=== PATIENT | female | born 2000 | race American Indian/Alaskan Native ===

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

== ENCOUNTER 2019-04-05 15:10 | Emergency (ER) | payer SELFPAY ==
--- NOTE | 2019-04-05 19:00 | Event Note ---
ED Screening Note Date of service: 04/05/19 Time: 18:57 ED Screening Note: Pt reports that while standing to talk to friend she felt a sudden pop to right forehead area after which she developed GUERRERO and dizziness. This was at 1330 today. mild right eye blurriness. Denies any nausea, vomiting, fever, no speech changes, and no focal weakness. This initial assessment/diagnostic orders/clinical plan/treatment(s) is/are subject to change based on patients health status, clinical progression and re- assessment by fellow clinical providers in the ED. Further treatment and workup at subsequent clinical providers discretion. Patient/guardian urged not to elope from the ED as their condition may be serious if not clinically assessed and managed. Initial orders include: CT head.
[2019-04-05] MEDS ORDERED: ACETAMINOPHEN 500 MG TAB PO ONE (19:01)
[2019-04-05] MEDS ORDERED: diphenhydrAMINE 25 MG CAP PO ONE (20:04)
[2019-04-05] MEDS ORDERED: METOCLOPRAMIDE 10 MG TAB PO ONE (20:04)
[2019-04-05] MEDS ORDERED: predniSONE 20 MG TAB PO ONE (20:04)
--- NOTE | 2019-04-05 20:05 | Cat Scan Report ---
CT head without contrast INDICATION : felt pop in head/ now with steele and dizziness. TECHNIQUE: Axial imaging performed from the skull apex through the skull base without the use of con trast. All CT scans at this location are performed using CT dose reduction for ALARA by means of aut omated exposure control. COMPARISON: CT head from 03/10/2018 FINDINGS: Parenchyma: No acute intracranial hemorrhage or parenchymal abnormality. Ventricles: Ventricles are normal in size and appear symmetric. Soft tissues: Soft tissues including the orbits appear normal. Bones: No acute osseous abnormality. Sinuses: Sinuses and mastoid air cells are clear. IMPRESSION: No acute abnormality. Signer Name: Milind Garay MD Signed: 04/05/2019 8:01 PM Workstation Name: [id number]
--- NOTE | 2019-04-05 20:39 | Emergency Department Report ---
ED Headache HPI - General Chief Complaint: Headache Stated Complaint: HEADACHE Time Seen by Provider: 04/05/19 18:56 - History of Present Illness Initial Comments: Mrs. Montez is a 18-year-old -[place]amese female who presents for 4/10 headache frontal times today. Patient states sudden onset with mild photophobia, no nausea vomiting ,no dizziness, no lightheadedness, no nausea vomiting, no fever, no chills ,no back or neck pain. Patient denies sinus infection, no sinus pain or pressure. Symptoms are exacerbated by movement and position. Symptoms are relieved by rest. Patient states headache is improving but at this time , She is ambulatory with steady gait to baseline per patient, she is tolerating by mouth intake without symptoms Timing/Duration: 24 hours Quality: moderate Head Injury Location: frontal Recent Head Trauma: occasional headaches Modifying Factors: improves with: movement Associated Symptoms: denies: facial pain, fever/chills, loss of consciousness, nausea/vomiting, rash, sinus infection, stiff neck, weakness Allergies/Adverse Reactions: Allergies No Known Allergies Allergy (Verified 08/03/18 12:23) Home Medications: Ambulatory Orders Fluticasone Propionate [Flonase] 2 spray NS QDAY #1 bottle 07/06/14 Cetirizine HCl [ZyrTEC 10mg cap] 10 mg PO QAM 14 Days #14 capsule 06/24/17 ALBUTEROL NEB's [Proventil 0.083% NEBS] 2.5 mg IH TID PRN #25 vial 09/25/17 Doxycycline Hyclate [Vibramycin] 100 mg PO BID 7 Days #14 capsule 09/25/17 Montelukast [Singulair] 10 mg PO QHS 7 Days tablet 09/25/17 predniSONE [Deltasone] 40 mg PO QDAY #8 tab 09/25/17 Albuterol Sulfate [Ventolin Hfa] 1 puff IH Q4H PRN #1 hfa.aer.ad 11/03/17 Ibuprofen [Motrin] 800 mg PO Q8HR PRN #20 tablet 11/03/17 predniSONE [Deltasone] 40 mg PO QDAY #10 tab 11/03/17 Ibuprofen [Motrin] 600 mg PO Q8H PRN #12 tablet 01/14/18 Naproxen 500 mg PO BID PRN #30 tablet 01/18/18 Ibuprofen [Motrin] 600 mg PO Q8H PRN #20 tablet 04/28/18 Ketorolac [Toradol] 10 mg PO Q6H PRN #14 tablet 07/09/18 Cyclobenzaprine [Flexeril 10 MG TAB] 10 mg PO BID PRN #20 tablet 08/03/18 Ibuprofen [Motrin 800 MG tab] 800 mg PO Q8HR PRN #12 tablet 08/03/18 Acetaminophen [Acetaminophen TAB] 1,000 mg PO Q6HR PRN #30 tablet 04/05/19 Metoclopramide [Reglan] 10 mg PO TID PRN #30 tab 04/05/19 diphenhydrAMINE [Benadryl CAP] 25 mg PO Q8HR PRN #30 capsule 04/05/19 ED Review of Systems ROS: Stated complaint: HEADACHE Other details as noted in HPI Constitutional: denies: chills, fever Eyes: denies: eye pain, eye discharge, vision change ENT: denies: ear pain, throat pain Respiratory: denies: cough, shortness of breath, wheezing Cardiovascular: denies: chest pain, palpitations Endocrine: no symptoms reported Gastrointestinal: denies: abdominal pain, nausea, diarrhea Genitourinary: denies: urgency, dysuria, discharge Musculoskeletal: denies: back pain, joint swelling, arthralgia Skin: denies: rash, lesions Neurological: headache. denies: weakness, numbness, paresthesias, confusion, abnormal gait, vertigo Psychiatric: denies: anxiety, depression Hematological/Lymphatic: denies: easy bleeding, easy bruising ED Past Medical Hx - Past Medical History Previous Medical History?: Yes Hx Hypertension: No Hx CVA: No Hx Heart Attack/AMI: No Hx Congestive Heart Failure: No Hx Diabetes: No Hx Deep Vein Thrombosis: No Hx Pulmonary Embolism: No Hx GERD: No Hx Liver Disease: No Hx Renal Disease: No Hx Sickle Cell Disease: No Hx Arthritis: No Hx Headaches / Migraines: No Hx Seizures: No Hx Kidney Stones: No Hx Psychiatric Treatment: No Hx Asthma: Yes Hx COPD: No Hx Tuberculosis: No Hx Dementia: No Hx HIV: No - Surgical History Past Surgical History?: Yes Hx Coronary Stent: No Hx Open Heart Surgery: No Hx Pacemaker: No Hx Internal Defibrillator: No Hx Cholecystectomy: No Hx Appendectomy: No Hx Breast Surgery: No Additional Surgical History: c section - Social History Smoking Status: Never Smoker Substance Use Type: None - Medications Home Medications: Home Medications Medication Instructions Recorded Confirmed Last Taken Type Fluticasone Propionate [Flonase] 2 spray NS QDAY #1 bottle 07/06/14 Unknown Rx Cetirizine HCl [ZyrTEC 10mg cap] 10 mg PO QAM 14 Days #14 capsule 06/24/17 Unknown Rx ALBUTEROL NEB's [Proventil 0.083% 2.5 mg IH TID PRN #25 vial 09/25/17 Unknown Rx NEBS] Doxycycline Hyclate [Vibramycin] 100 mg PO BID 7 Days #14 capsule 09/25/17 Unknown Rx Montelukast [Singulair] 10 mg PO QHS 7 Days tablet 09/25/17 Unknown Rx predniSONE [Deltasone] 40 mg PO QDAY #8 tab 09/25/17 Unknown Rx Albuterol Sulfate [Ventolin Hfa] 1 puff IH Q4H PRN #1 hfa.aer.ad 11/03/17 Unknown Rx Ibuprofen [Motrin] 800 mg PO Q8HR PRN #20 tablet 11/03/17 Unknown Rx predniSONE [Deltasone] 40 mg PO QDAY #10 tab 11/03/17 Unknown Rx Ibuprofen [Motrin] 600 mg PO Q8H PRN #12 tablet 01/14/18 Unknown Rx Naproxen 500 mg PO BID PRN #30 tablet 01/18/18 Unknown Rx Ibuprofen [Motrin] 600 mg PO Q8H PRN #20 tablet 04/28/18 Unknown Rx Ketorolac [Toradol] 10 mg PO Q6H PRN #14 tablet 07/09/18 Unknown Rx Cyclobenzaprine [Flexeril 10 MG 10 mg PO BID PRN #20 tablet 08/03/18 Unknown Rx TAB] Ibuprofen [Motrin 800 MG tab] 800 mg PO Q8HR PRN #12 tablet 08/03/18 Unknown Rx Acetaminophen [Acetaminophen TAB] 1,000 mg PO Q6HR PRN #30 tablet 04/05/19 Unknown Rx Metoclopramide [Reglan] 10 mg PO TID PRN #30 tab 04/05/19 Unknown Rx diphenhydrAMINE [Benadryl CAP] 25 mg PO Q8HR PRN #30 capsule 04/05/19 Unknown Rx ED Physical Exam - General Limitations: No Limitations General appearance: alert, in no apparent distress - Head Head exam: Present: atraumatic, normocephalic - Eye Eye exam: Present: normal appearance, PERRL, EOMI. Absent: conjunctival injection, nystagmus Pupils: Present: normal accommodation - ENT ENT exam: Present: normal orophraynx, mucous membranes moist, TM's normal bilaterally, normal external ear exam - Neck Neck exam: Present: normal inspection, full ROM. Absent: tenderness, meningismus, lymphadenopathy, thyromegaly - Respiratory Respiratory exam: Present: normal lung sounds bilaterally. Absent: respiratory distress, wheezes, stridor, chest wall tenderness - Cardiovascular Cardiovascular Exam: Present: regular rate, normal rhythm, normal heart sounds. Absent: systolic murmur, diastolic murmur, rubs, gallop - GI/Abdominal GI/Abdominal exam: Present: soft, normal bowel sounds. Absent: distended, tenderness, bruit, hernia - Rectal Rectal exam: Present: deferred - Extremities Exam Extremities exam: Present: normal inspection, full ROM, normal capillary refill. Absent: tenderness, calf tenderness - Back Exam Back exam: Present: normal inspection, full ROM. Absent: tenderness, CVA tenderness (R), CVA tenderness (L), muscle spasm, vertebral tenderness - Neurological Exam Neurological exam: Present: alert, oriented X3, CN II-XII intact, normal gait, reflexes normal. Absent: motor sensory deficit - Psychiatric Psychiatric exam: Present: normal affect, normal mood - Skin Skin exam: Present: warm, dry, intact, normal color. Absent: rash, cyanosis ED Course Vital Signs 04/05/19 15:35 Temperature 98.6 F Pulse Rate 80 Respiratory 18 Rate Blood Pressure 136/86 O2 Sat by Pulse 99 Oximetry ED Medical Decision Making - Radiology Data Radiology results: report reviewed, image reviewed Ordering Physician: TRACIE ORTEGA Date of Service: 04/05/19 Procedure(s): CT head/brain wo con Accession Number(s): [id number] cc: TRACIE ORTEGA CT head without contrast INDICATION : felt pop in head/ now with steele and dizziness. TECHNIQUE: Axial imaging performed from the skull apex through the skull base without the use of contrast. All CT scans at this location are performed using CT dose reduction for ALARA by means of automated exposure control. COMPARISON: CT head from 03/10/2018 FINDINGS: Parenchyma: No acute intracranial hemorrhage or parenchymal abnormality. Ventricles: Ventricles are normal in size and appear symmetric. Soft tissues: Soft tissues including the orbits appear normal. Bones: No acute osseous abnormality. Sinuses: Sinuses and mastoid air cells are clear. IMPRESSION: No acute abnormality. Signer Name: Milind Garay MD Signed: 04/05/2019 8:01 PM Workstation Name: [id number] Transcribed By: JACOB Dictated By: Milind Garay MD Electronically Authenticated By: Milind Garay MD Signed Date/Time: 04/05/192000 DD/ 99 TD/TT: - Medical Decision Making CT head was normal., There is no mass or bleed no abnormality. Headache is improved to 2/10. Plan DC'd home with Tylenol Reglan and Benadryl when necessary headache. Patient will follow with PCP in 2-3 days. Referral to neurology states she will follow with PCP first. Patient DC'd to home in stable condition patient is alert oriented 3, patient ambulatory with steady gait patient with no acute distress. DC'd in stable condition at this time. Critical care attestation.: If time is entered above; I have spent that time in minutes in the direct care of this critically ill patient, excluding procedure time. ED Disposition Clinical Impression: Headache Qualifiers: Headache type: unspecified Headache chronicity pattern: acute headache Intractability: not intractable Qualified Code(s): R51 - Headache Disposition: DC-01 TO HOME OR SELFCARE Is pt being admited?: No Does the pt Need Aspirin: No Condition: Stable Instructions: Acute Headache (ED) Prescriptions: Acetaminophen [Acetaminophen TAB] 1,000 mg PO Q6HR PRN #30 tablet PRN Reason: Headache diphenhydrAMINE [Benadryl CAP] 25 mg PO Q8HR PRN #30 capsule PRN Reason: headache Metoclopramide [Reglan] 10 mg PO TID PRN #30 tab PRN Reason: Headache Referrals: [facility] [Outside] - 3-5 Days Forms: Work/School Release Form(ED) Time of Disposition: 20:44
[2019-04-05 20:51] VITALS: BP 143/90
== END 2019-04-05 20:55 | disposition home or self-care (01) ==
LOC: ED 15:10
DX: R51 Headache (principal); Z79.899 Other long term (current) drug therapy
CPT/HCPCS: 70450; 99283; J7512

== ENCOUNTER 2019-06-14 14:04 | Emergency (ER) | payer SELFPAY ==
--- NOTE | 2019-06-14 15:51 | Event Note ---
ED Screening Note ED Screening Note: states she is having abdominal discomfort that began three days ago nausea, vomiting lower back pain no diarrhea no urinary sx PMHx asthma no allergies to meds LNMP: 05/25/19 This initial assessment/diagnostic orders/clinical plan/treatment(s) is/are subject to change based on patients health status, clinical progression and re- assessment by fellow clinical providers in the ED. Further treatment and workup at subsequent clinical providers discretion. Patient/guardian urged not to elope from the ED as their condition may be serious if not clinically assessed and managed. Initial orders include: labs, UA, urine preg
[2019-06-14 16:19] LABS: Basophils % (Auto) 0.5 % (0.0-1.8); Eosinophils # (Auto) 0.1 K/mm3 (0.0-0.4); Eosinophils % (Auto) 1.7 % (0.0-4.3); Hematocrit 39.8 % (30.3-42.9); Hemoglobin 13.2 gm/dl (10.1-14.3); Lymphocytes # (Auto) 3.6 K/mm3 (1.2-5.4); Lymphocytes % (Auto) 45.5 % (13.4-35.0); Mean Corpuscular HGB Conc 33 % (30-34); Mean Corpuscular Volume 86 fl (79-97); Monocytes # (Auto) 0.7 K/mm3 (0.0-0.8); Monocytes % (Auto) 8.6 % (0.0-7.3); Platelet Count 251 K/mm3 (140-440); Red Blood Count 4.65 M/mm3 (3.65-5.03); Red Cell Distribution Width 13.7 % (13.2-15.2)
[2019-06-14 16:41] LABS: Alanine Aminotransferase 20 units/L (7-56); BUN/Creatinine Ratio 17; Blood Urea Nitrogen 12 mg/dL (7-17); Calcium 9.4 mg/dL (8.4-10.2); Hemolysis Index 29
[2019-06-14 17:07] LABS: HCG Qualitative,Urine Negative (Negative)
[2019-06-14 17:10] LABS: Bilirubin,Urine NEG (Negative); Blood,Urine NEG (Negative); Color,Urine Straw (Yellow); Mucus,Urine FEW /HPF; Protein,Urine <15 mg/dL mg/dL (Negative); Urobilinogen,Urine < 2.0 mg/dL (<2.0)
[2019-06-14] MEDS ORDERED: traMADol 50 MG TAB PO ONE (17:22)
--- NOTE | 2019-06-14 17:25 | Emergency Department Report ---
ED Abdominal Pain HPI - General Chief Complaint: Abdominal Pain Stated Complaint: HEADACHE/ABD/BACK PAIN/NAUSEA Time Seen by Provider: 06/14/19 15:49 Source: patient Mode of arrival: Ambulatory Limitations: No Limitations - History of Present Illness Initial Comments: 19 YO COMES TO ER WITH REPORTS OF N/V/D FOR 1 DAY. ASKING FOR WORK NOTE FOR TOMORROW. PMH ASTHMA. LMP 2 W AGO. AMBULATORY AND IN NAD IN ACC. TOOK OTC MEDS AT HOME- DID NOT SEE PCP Complaint: abdominal pain -: days(s) Location: diffuse Consistency: constant Improves With: nothing Worsens With: nothing Associated Symptoms: nausea, vomiting, diarrhea - Related Data Previous Rx's Medication Instructions Recorded Last Taken Type Ibuprofen [Motrin] 800 mg PO Q8HR PRN #30 tablet 06/14/19 Unknown Rx Ondansetron [Zofran Odt] 4 mg PO Q8HR PRN #10 tab.rapdis 06/14/19 Unknown Rx Allergies Allergy/AdvReac Type Severity Reaction Status Date / Time No Known Allergies Allergy Verified 08/03/18 12:23 ED Review of Systems ROS: Stated complaint: HEADACHE/ABD/BACK PAIN/NAUSEA Other details as noted in HPI Comment: All other systems reviewed and negative ED Past Medical Hx - Past Medical History Previous Medical History?: Yes Hx Hypertension: No Hx CVA: No Hx Heart Attack/AMI: No Hx Congestive Heart Failure: No Hx Diabetes: No Hx Deep Vein Thrombosis: No Hx Pulmonary Embolism: No Hx GERD: No Hx Liver Disease: No Hx Renal Disease: No Hx Sickle Cell Disease: No Hx Arthritis: No Hx Headaches / Migraines: No Hx Seizures: No Hx Kidney Stones: No Hx Psychiatric Treatment: No Hx Asthma: Yes Hx COPD: No Hx Tuberculosis: No Hx Dementia: No Hx HIV: No - Surgical History Past Surgical History?: Yes Hx Coronary Stent: No Hx Open Heart Surgery: No Hx Pacemaker: No Hx Internal Defibrillator: No Hx Cholecystectomy: No Hx Appendectomy: No Hx Breast Surgery: No Additional Surgical History: c section - Family History Family history: no significant - Social History Smoking Status: Never Smoker Substance Use Type: None - Medications Home Medications: Home Medications Medication Instructions Recorded Confirmed Last Taken Type Ibuprofen [Motrin] 800 mg PO Q8HR PRN #30 tablet 06/14/19 Unknown Rx Ondansetron [Zofran Odt] 4 mg PO Q8HR PRN #10 tab.rapdis 06/14/19 Unknown Rx ED Physical Exam - General Limitations: No Limitations General appearance: alert, in no apparent distress - Head Head exam: Present: atraumatic, normocephalic - Eye Eye exam: Present: normal appearance - ENT ENT exam: Present: mucous membranes moist - Neck Neck exam: Present: normal inspection - Respiratory Respiratory exam: Present: normal lung sounds bilaterally. Absent: respiratory distress - Cardiovascular Cardiovascular Exam: Present: regular rate, normal rhythm. Absent: systolic murmur, diastolic murmur, rubs, gallop - GI/Abdominal GI/Abdominal exam: Present: soft, normal bowel sounds - Extremities Exam Extremities exam: Present: normal inspection - Back Exam Back exam: Present: normal inspection - Neurological Exam Neurological exam: Present: alert, oriented X3 - Psychiatric Psychiatric exam: Present: normal affect, normal mood - Skin Skin exam: Present: warm, dry, intact, normal color. Absent: rash ED Course Vital Signs 06/14/19 14:13 Temperature 98.3 F Pulse Rate 75 Respiratory 16 Rate Blood Pressure 144/83 O2 Sat by Pulse 100 Oximetry ED Medical Decision Making - Lab Data Result diagrams: 06/14/19 16:04 06/14/19 16:04 - Medical Decision Making Lab Results 06/14/19 06/14/19 06/14/19 Range/Units 16:04 16:04 16:47 WBC 8.0 (4.5-11.0) K/mm3 RBC 4.65 (3.65-5.03) M/mm3 Hgb 13.2 (10.1-14.3) gm/dl Hct 39.8 (30.3-42.9) % MCV 86 (79-97) fl MCH 28 (28-32) pg MCHC 33 (30-34) % RDW 13.7 (13.2-15.2) % Plt Count 251 (140-440) K/mm3 Lymph % (Auto) 45.5 H (13.4-35.0) % [place] % (Auto) 8.6 H (0.0-7.3) % Eos % (Auto) 1.7 (0.0-4.3) % Baso % (Auto) 0.5 (0.0-1.8) % Lymph # 3.6 (1.2-5.4) K/mm3 [place] # 0.7 (0.0-0.8) K/mm3 Eos # 0.1 (0.0-0.4) K/mm3 Baso # 0.0 (0.0-0.1) K/mm3 Seg Neutrophils % 43.7 (40.0-70.0) % Seg Neutrophils # 3.5 (1.8-7.7) K/mm3 Sodium 138 (137-145) mmol/L Potassium 4.2 (3.6-5.0) mmol/L Chloride 104.4 (98-107) mmol/L Carbon Dioxide 20 L (22-30) mmol/L Anion Gap 18 mmol/L BUN 12 (7-17) mg/dL Creatinine 0.7 (0.7-1.2) mg/dL Estimated GFR > 60 ml/min BUN/Creatinine Ratio 17 % Glucose 72 (65-100) mg/dL Calcium 9.4 (8.4-10.2) mg/dL Total Bilirubin 0.20 (0.1-1.2) mg/dL AST 17 (5-40) units/L ALT 20 (7-56) units/L Alkaline Phosphatase 72 (35-129) units/L Total Protein 7.1 (6.3-8.2) g/dL Albumin 4.0 (3.9-5) g/dL Albumin/Globulin Ratio 1.3 % Lipase 30 (13-60) units/L Urine Color Straw (Yellow) Urine Turbidity Clear (Clear) Urine pH 6.0 (5.0-7.0) Ur Specific [place] 1.014 (1.003-1.030) Urine Protein <15 mg/dl (Negative) mg/dL Urine Glucose (UA) Neg (Negative) mg/dL Urine Ketones Neg (Negative) mg/dL Urine Blood Neg (Negative) Urine Nitrite Neg (Negative) Ur Reducing Substances Not Reportable Urine Bilirubin Neg (Negative) Urine Ictotest Not Reportable Urine Urobilinogen < 2.0 (<2.0) mg/dL Ur Leukocyte Esterase Neg (Negative) Urine WBC (Auto) 1.0 (0.0-6.0) /HPF Urine RBC (Auto) 1.0 (0.0-6.0) /HPF U Epithel Cells (Auto) 1.0 (0-13.0) /HPF Urine Mucus Few /HPF Urine HCG, Qual Negative (Negative) Vital Signs 06/14/19 14:13 Temperature 98.3 F Pulse Rate 75 Respiratory 16 Rate Blood Pressure 144/83 O2 Sat by Pulse 100 Oximetry HAS ASK NUMEROUS TIMES FOR WORK NOTE FOR TOMORROW. UPREG NEG UA NOTED WBC N LIPASE N VSS NAD AMBULATORY NO FEVER NO TACHYCARDIA NO VOMITING IN ER NOW FOR 5 HOURS DC HOME WITH PCP FOLLOW UP - Differential Diagnosis PREG/UTI/CHOLEY/GASTRENTERITIS Critical care attestation.: If time is entered above; I have spent that time in minutes in the direct care of this critically ill patient, excluding procedure time. ED Disposition Clinical Impression: Gastroenteritis Disposition: DC-01 TO HOME OR SELFCARE Is pt being admited?: No Does the pt Need Aspirin: No Condition: Stable Instructions: Gastroenteritis (ED) Additional Instructions: STAY WELL HYDRATED MEDS ORDERED TODAY OVER THE COUNTER LOMOTIL CAN BE USED FOR DIARRHEA ALL LABS NORMAL TODAY FOLLOW UP WITH PCP REFERRAL BELOW Prescriptions: Ibuprofen [Motrin] 800 mg PO Q8HR PRN #30 tablet PRN Reason: Pain, Moderate (4-6) Ondansetron [Zofran Odt] 4 mg PO Q8HR PRN #10 tab.rapdis PRN Reason: Vomiting Referrals: EVARISTO ARIAS MD [Staff Physician] - 3-5 Days Forms: Work/School Release Form(ED) Time of Disposition: 17:22
[2019-06-14 18:01] VITALS: BP 143/51
== END 2019-06-14 18:01 | disposition home or self-care (01) ==
LOC: ED 14:04
DX: K52.9 Noninfective gastroenteritis and colitis, unspecified (principal); J45.909 Unspecified asthma, uncomplicated; Z79.899 Other long term (current) drug therapy
CPT/HCPCS: 36415; 80053; 81001; 81025; 83690; 85025